=== PATIENT | male | born 1955 | race Caucasian/White ===

== ENCOUNTER 2021-02-10 09:22 | Inpatient (IN) ==
[2021-02-10] MEDS ORDERED: DEXTROSE 50% 25 GM/50 ML VIAL IV PRN ×2 (09:26)
[2021-02-10] MEDS ORDERED: GLUCAGON 1 MG VIAL IM PRN ×2 (09:26)
[2021-02-10] MEDS ORDERED: CLORAZEPATE 3.75 MG TABLET PO PRN (09:35)
[2021-02-10] MEDS ORDERED: NITROGLYCERIN SL 0.4 MG TABLET SL PRN (09:35)
[2021-02-10] MEDS ORDERED: MORPHINE 4 MG/1 ML VIAL IV PRN (09:35)
[2021-02-10 09:57] LABS: Basophils % 0.5 % (0.0-0.8); Eosinophils # 0.3 10*3/uL (0.0-0.87); Eosinophils % 4.3 % (0.00-10.9); Hematocrit 47.1 VOL% (42.0-52.0); Hemoglobin 15.2 GM/DL (14.0-18.0); Immature Granulocytes % 0.5 %; Immature Granulocytes Absolute 0.03 #; Lymphocytes # 0.8 10*3/uL (1.4-4.0); Lymphocytes % 12.6 % (21.2-54.2); Mean Corpuscular HGB Conc 32.3 GM/DL (32-36); Mean Corpuscular Volume 88.4 FL (87-102); Mean Platelet Volume 11.9 FL (9.6-12.0); Monocytes % 6.5 % (1.7-12.7); Neutrophils % 75.6 % (38.7-73.9); Platelet Count 129 T/CUMM (130-400); Red Blood Count 5.33 MC/CUMM (3.8-5.5); Red Cell Distribution Width 14.6 % (9.3-17.3)
[2021-02-10 10:20] LABS: Albumin 4.2 G/DL (3.4-5.0); Bilirubin,Total 0.6 MG/DL (0.2-1.0); Calcium 9.5 MG/DL (8.5-10.1); Osmolality,Calculated 285.2 MOS/KG (273-304); Potassium 3.5 MMOL/L (3.5-5.1); Total Protein 7.9 G/DL (6.4-8.2)
[2021-02-10 10:32] LABS: ABG Base Excess 1.4 MMOL/L (-2.5-2.5); ABG HCO3 25.6 MMOL/L (20-26); ABG Oxygen Saturation 96.8 % (95-100); ABG PH 7.419 (7.35-7.45); ABG PO2 84.6 MM HG (80-95); ABG TCO2 21.7 MMOL/L (23-27); Allen Test Positive; Pt O2 Delivery Device Room Air
[2021-02-10] MEDS ORDERED: BISACODYL 5 MG TABLET PO ONE (11:22)
[2021-02-10] MEDS: CHLORHEXIDINE 4% SOLN 118 ML BOTTLE TOP SCH ×2 (11:45→16:51)
[2021-02-10] MEDS: INSULIN REGULAR 100 UNIT/ML SUBCUT SCH ×3 (13:26→20:47)
[2021-02-10] MEDS: CHLORHEXIDINE 0.12% ORAL RINSE 60 ML BOTTLE SWISH/SPIT SCH ×2 (13:45→20:50)
[2021-02-11] MEDS: SODIUM CHLORIDE 0.9% 1,000 ML IV SCH ×2 (05:00→09:40)
[2021-02-11] MEDS: CHLORHEXIDINE 4% SOLN 118 ML BOTTLE TOP SCH (05:00)
[2021-02-11] MEDS ORDERED: VANCOMYCIN INJ 1,000 MG in SODIUM CHLORIDE 0.9% 250 ML IV ONE (05:00)
[2021-02-11] MEDS ORDERED: PAPAVERINE 60 MG/2 ML VIAL ONE (05:20)
[2021-02-11] MEDS ORDERED: VANCOMYCIN 500 MG VIAL ONE (05:21)
[2021-02-11] MEDS ORDERED: VANCOMYCIN 1,000 MG VIAL ONE (05:21)
[2021-02-11] MEDS ORDERED: PHENYLEPHRINE DRIP 20 MG/250 ML PREMIX IV ONE (05:42)
[2021-02-11] MEDS ORDERED: AMINOCAPROIC ACID 5,000 MG/20 ML VIAL ONE (05:42)
[2021-02-11] MEDS ORDERED: SODIUM CHLORIDE 0.9% 1,000 ML IV ONE (05:42)
[2021-02-11] MEDS ORDERED: LACTATED RINGERS 1,000 ML IV ONE (05:42)
[2021-02-11] MEDS ORDERED: SODIUM CHLORIDE 0.9% 250 ML IV ONE (05:42)
[2021-02-11] MEDS ORDERED: VECURONIUM 10 MG VIAL IV ONE ×2 (05:42→11:35)
[2021-02-11] MEDS ORDERED: HEPARIN/NACL 0.9% 2 UNITS/ML 1,000 UNIT/500 ML BAG IV ONE (05:42)
[2021-02-11] MEDS ORDERED: LIDOCAINE 2% 5 ML VIAL ONE ×2 (05:42→10:55)
[2021-02-11] MEDS ORDERED: ETOMIDATE 40 MG/20 ML VIAL IV ONE (05:42)
[2021-02-11] MEDS ORDERED: CALCIUM CHLORIDE 1,000 MG/10 ML VIAL IV ONE (05:42)
[2021-02-11] MEDS ORDERED: SUFentanil 250 MCG/5 ML AMP ONE ×4 (05:44→07:42)
[2021-02-11] MEDS ORDERED: MIDAZOLAM 10 MG/2 ML VIAL ONE ×4 (05:44)
[2021-02-11] MEDS ORDERED: DIAZEPAM 5 MG TABLET PO ONE (05:47)
[2021-02-11] MEDS ORDERED: FAMOTIDINE 20 MG TABLET PO ONE (05:48)
[2021-02-11] MEDS ORDERED: ONDANSETRON 4 MG/2 ML VIAL IV PRN ×2 (05:53→11:41)
[2021-02-11] MEDS ORDERED: ONDANSETRON 4 MG/2 ML VIAL ONE (05:59)
[2021-02-11 07:53] LABS: ABG Base Excess 0.5 MMOL/L (-2.5-2.5); ABG HCO3 24.9 MMOL/L (20-26); ABG Oxygen Saturation 99.9 % (95-100); ABG PCO2 35.5 MM HG (35-48); ABG PH 7.441 (7.35-7.45); ABG TCO2 20.4 MMOL/L (23-27); Glucose Heart Surgery 172 MG/DL (74-106); Hematocrit Heart Surgery 45.4 PERCENT (42-52); Hemoglobin Heart Surgery 14.8 G/DL (14.0-18.0); Ionized Calcium Arterial 1.16 MMOL/L (1.21-1.46); PCO2 Patient Temp Arterial 35.5 MMHG; PH Patient Temp Arterial 7.441; Patient Temperature 37 CELCIUS; Potassium Heart/CVR 3.3 MMOL/L (3.5-5.1); Sodium Heart/CVR 138 MMOL/L (135-145)
[2021-02-11 08:10] LABS: Bilirubin,Urine Negative (Negative); Blood, Urine Large mg/dL (Negative); Glucose,Urine (UA) >=500 mg/dL (Negative); Ketones,Urine Negative (Negative); Mucus,Urine Occasional /LPF (Occasional); Nitrite,Urine Negative (Negative); Protein,Urine Negative; RBC,Urine 4 /HPF (0-4); Squamous Epithelial Cell,Urine Occasional /HPF (0-10); Urine Appearance CLEAR (Clear); Urine Color Yellow (Yellow); Urine Specific Gravity 1.012 (1.001-1.035); Urine Urobilinogen < 2.0 EU/DL (0.2-1.0); WBC,Urine <1 /HPF (0-6)
[2021-02-11] MEDS ORDERED: NITROPRUSSIDE 50 MG/2 ML VIAL ONE (08:13)
[2021-02-11] MEDS ORDERED: SODIUM BICARBONATE 50 MEQ/50 ML VIAL IV ONE ×2 (08:13→10:56)
[2021-02-11] MEDS ORDERED: POTASSIUM CHLORIDE RIDER 100 ML IV ONE (08:14)
[2021-02-11] MEDS ORDERED: CALCIUM CHLORIDE 1,000 MG/10 ML SYRINGE IV ONE (08:14)
[2021-02-11] MEDS ORDERED: PHENYLEPHRINE DRIP 40 MG/250 ML PREMIX IV ONE (08:14)
[2021-02-11] MEDS ORDERED: ALBUMIN 5% 12.5 GM/250 ML VIAL IV ONE (08:16)
[2021-02-11] MEDS ORDERED: LIDOCAINE 100 MG/5 ML SYRINGE ONE (08:16)
[2021-02-11] MEDS ORDERED: EPINEPHrine 1 MG/10 ML SYRINGE ONE (08:16)
[2021-02-11] MEDS ORDERED: ATROPINE 1 MG/10 ML SYRINGE ONE (08:16)
[2021-02-11 09:24] LABS: Hematocrit Heart Surgery 34.1 PERCENT (42-52); Hemoglobin Heart Surgery 11.1 G/DL (14.0-18.0); PH Patient Temp Venous 7.475; PO2 Patient Temp Venous 42.2 MM HG; Potassium Heart/CVR 4.1 MMOL/L (3.5-5.1); VBG Base Excess 1.2 MEQ/L (0-4); VBG HCO3 25.2 MEQ/L (24-28); VBG Oxygen Saturation 85.5 %; VBG PCO2 36.4 MMHG (41-51); VBG PH 7.445; VBG PO2 48.4 MMHG (17-40); VBG Total CO2 22.4 MMOL/L
[2021-02-11] MEDS: INSULIN REGULAR 100 UNIT/ML SUBCUT SCH ×2 (09:39→19:01)
[2021-02-11] MEDS: CHLORHEXIDINE 0.12% ORAL RINSE 60 ML BOTTLE SWISH/SPIT SCH ×2 (09:39→20:46)
[2021-02-11] MEDS ORDERED: SEVOFLURANE 1 UNIT/15 MINUTE INH ONE ×5 (09:51→11:28)
[2021-02-11 09:54] LABS: Hematocrit Heart Surgery 38.5 PERCENT (42-52); Hemoglobin Heart Surgery 12.5 G/DL (14.0-18.0); PCO2 Patient Temp Venous 30.2 MM HG; PH Patient Temp Venous 7.5; PO2 Patient Temp Venous 44.5 MM HG; Potassium Heart/CVR 3.6 MMOL/L (3.5-5.1); VBG Base Excess 1.1 MEQ/L (0-4); VBG HCO3 25.2 MEQ/L (24-28); VBG Oxygen Saturation 87.6 %; VBG PCO2 33.2 MMHG (41-51); VBG PH 7.47; VBG PO2 51.1 MMHG (17-40); VBG Total CO2 21.2 MMOL/L
[2021-02-11 10:25] LABS: Hematocrit Heart Surgery 39.3 PERCENT (42-52); Hemoglobin Heart Surgery 12.8 G/DL (14.0-18.0); PCO2 Patient Temp Venous 26.5 MM HG; PH Patient Temp Venous 7.53; PO2 Patient Temp Venous 40.2 MM HG; Potassium Heart/CVR 3.7 MMOL/L (3.5-5.1); VBG Base Excess 0.6 MEQ/L (0-4); VBG HCO3 24.7 MEQ/L (24-28); VBG Oxygen Saturation 85.8 %; VBG PCO2 29.2 MMHG (41-51); VBG PH 7.5; VBG PO2 46.2 MMHG (17-40); VBG Total CO2 19.8 MMOL/L
[2021-02-11] MEDS ORDERED: NITROGLYCERIN DRIP 50 MG/250 ML BOTTLE IV ONE (10:39)
[2021-02-11] MEDS ORDERED: HEPARIN 10,000 UNIT/10 ML VIAL ONE (10:55)
[2021-02-11] MEDS ORDERED: PROTAMINE SULFATE 250 MG/25 ML VIAL IV ONE (10:55)
[2021-02-11] MEDS ORDERED: ALBUMIN 25% 25 GM/100 ML VIAL IV ONE (10:55)
[2021-02-11] MEDS ORDERED: methylPREDNISolone SOD SUC 1,000 MG/8 ML VIAL ONE (10:55)
[2021-02-11] MEDS ORDERED: MAGNESIUM SULFATE 5 GM/10 ML VIAL IV ONE (10:55)
[2021-02-11] MEDS ORDERED: DEXTROSE 5% KCL 20 MEQ 20 MEQ/1,000 ML BAG IV ONE (10:55)
[2021-02-11] MEDS ORDERED: MANNITOL 100 GM/500 ML BAG IV ONE (10:55)
[2021-02-11] MEDS ORDERED: FUROSEMIDE 20 MG/2 ML VIAL ONE (10:56)
[2021-02-11] MEDS ORDERED: PROTAMINE SULFATE 50 MG/5 ML VIAL IV ONE (10:56)
[2021-02-11 11:01] LABS: ABG Base Excess -1.6 MMOL/L (-2.5-2.5); ABG HCO3 23.1 MMOL/L (20-26); ABG Oxygen Saturation 98.4 % (95-100); ABG PCO2 38.1 MM HG (35-48); ABG PH 7.389 (7.35-7.45); ABG TCO2 20.2 MMOL/L (23-27); Glucose Heart Surgery 264 MG/DL (74-106); Hematocrit Heart Surgery 39.7 PERCENT (42-52); Hemoglobin Heart Surgery 12.9 G/DL (14.0-18.0); Ionized Calcium Arterial 1.26 MMOL/L (1.21-1.46); PCO2 Patient Temp Arterial 38.1 MMHG; PH Patient Temp Arterial 7.389; Patient Temperature 37 CELCIUS; Potassium Heart/CVR 4.1 MMOL/L (3.5-5.1); Sodium Heart/CVR 134 MMOL/L (135-145)
[2021-02-11] MEDS ORDERED: SUCCINYLCHOLINE 200 MG/10 ML VIAL ONE (11:29)
[2021-02-11] MEDS ORDERED: NITROPRUSSIDE 100 MG in DEXTROSE 5% 250 ML IV PRN (11:41)
[2021-02-11] MEDS ORDERED: POTASSIUM CHLORIDE RIDER 10 MEQ in PREMIX 1 EACH IV PRN (11:41)
[2021-02-11] MEDS ORDERED: MAGNESIUM SULF RIDER 2 GM in PREMIX 1 EACH IV PRN (11:41)
[2021-02-11] MEDS ORDERED: CALCIUM CHLORIDE 1,000 MG/10 ML SYRINGE IV PRN (11:41)
[2021-02-11] MEDS ORDERED: LACTATED RINGERS 250 ML IV PRN (11:41)
[2021-02-11] MEDS ORDERED: PHENYLEPHRINE DRIP 40 MG/250 ML PREMIX IV PRN (11:41)
[2021-02-11] MEDS ORDERED: MORPHINE 10 MG/1 ML VIAL IV PRN (11:41)
[2021-02-11] MEDS ORDERED: MIDAZOLAM 10 MG/2 ML VIAL IV PRN (11:41)
[2021-02-11] MEDS ORDERED: MIDAZOLAM 2 MG/2 ML VIAL IV PRN (11:41)
[2021-02-11] MEDS ORDERED: CHLORHEXIDINE 4% SOLN 118 ML BOTTLE TOP PRN (11:41)
[2021-02-11] MEDS ORDERED: ACETAMINOPHEN 650 MG SUPP RECTAL PRN (11:41)
[2021-02-11] MEDS ORDERED: DEXTROSE 50% 25 GM/50 ML VIAL IV PRN ×2 (11:41)
[2021-02-11] MEDS ORDERED: INSULIN REGULAR 100 UNIT/ML IV ONE (11:41)
[2021-02-11] MEDS ORDERED: VECURONIUM 10 MG VIAL IV PRN ×2 (11:41)
[2021-02-11] MEDS ORDERED: MAGNESIUM SULF RIDER 4 GM in PREMIX 1 EACH IV PRN (11:41)
[2021-02-11] MEDS ORDERED: INSULIN REGULAR 100 UNIT/ML IV PRN (11:41)
[2021-02-11] MEDS: SODIUM CHLORIDE 0.45% 1,000 ML IV SCH ×2 (11:50)
[2021-02-11 12:12] LABS: ABG Base Excess -1.8 MMOL/L (-2.5-2.5); ABG HCO3 22.9 MMOL/L (20-26); ABG PCO2 36.9 MM HG (35-48); ABG PH 7.396 (7.35-7.45); ABG PO2 90.6 MM HG (80-95); ABG TCO2 19.6 MMOL/L (23-27); Glucose Heart Surgery 241 MG/DL (74-106); Hematocrit Heart Surgery 41.3 PERCENT (42-52); Hemoglobin Heart Surgery 13.5 G/DL (14.0-18.0); Potassium Heart/CVR 3.1 MMOL/L (3.5-5.1)
[2021-02-11 12:16] LABS: Basophils % 0.3 % (0.0-0.8); Eosinophils # 0.2 10*3/uL (0.0-0.87); Eosinophils % 2.1 % (0.00-10.9); Hematocrit 40.3 VOL% (42.0-52.0); Hemoglobin 13.3 GM/DL (14.0-18.0); Immature Granulocytes % 1.1 %; Lymphocytes # 1.2 10*3/uL (1.4-4.0); Lymphocytes % 12.8 % (21.2-54.2); Mean Corpuscular Volume 87.6 FL (87-102); Mean Platelet Volume 12.4 FL (9.6-12.0); Monocytes % 8.3 % (1.7-12.7); Neutrophils % 75.4 % (38.7-73.9); Platelet Count 112 T/CUMM (130-400); Red Cell Distribution Width 14.5 % (9.3-17.3); White Blood Count 9.2 T/CUMM (4-12)
[2021-02-11 12:34] LABS: CKMB % 6.3 %; INR 1.3; PT Patient Result 13.8 SECS (9.8-11.9); Partial Thromboplastin Time 29.6 SECS (23.9-33.8)
[2021-02-11 12:36] LABS: Troponin I 4.89 NG/ML (0.00-0.045)
[2021-02-11 12:39] LABS: Albumin 3.5 G/DL (3.4-5.0); Bilirubin,Total 0.9 MG/DL (0.2-1.0); Potassium 3.3 MMOL/L (3.5-5.1); Total Protein 5.9 G/DL (6.4-8.2)
[2021-02-11] MEDS: POTASSIUM CHLORIDE RIDER 20 MEQ in PREMIX 1 EACH IV PRN ×5 (13:51→21:50)
[2021-02-11] MEDS ORDERED: NITROGLYCERIN DRIP 50 MG/250 ML BOTTLE IV PRN (13:52)
[2021-02-11] MEDS: INSULIN REGULAR DRIP 100 ML IV SCH (14:10)
[2021-02-11] MEDS ORDERED: LACTATED RINGERS 1,000 ML IV PRN (16:31)
[2021-02-11 17:36] LABS: ABG HCO3 23.6 MMOL/L (20-26); ABG Oxygen Saturation 98.7 % (95-100); ABG PCO2 39.3 MM HG (35-48); ABG PH 7.389 (7.35-7.45); ABG TCO2 21.1 MMOL/L (23-27); Glucose Heart Surgery 181 MG/DL (74-106); Hematocrit Heart Surgery 36.6 PERCENT (42-52); Hemoglobin Heart Surgery 11.9 G/DL (14.0-18.0); Potassium Heart/CVR 3.2 MMOL/L (3.5-5.1)
[2021-02-11] MEDS ORDERED: FUROSEMIDE 40 MG/4 ML VIAL ONE (18:31)
[2021-02-11] MEDS ORDERED: FUROSEMIDE 40 MG/4 ML VIAL IV ONE (19:00)
[2021-02-11 19:18] LABS: ABG Base Excess -0.8 MMOL/L (-2.5-2.5); ABG HCO3 23.8 MMOL/L (20-26); ABG Oxygen Saturation 97.4 % (95-100); ABG PCO2 41.3 MM HG (35-48); ABG PH 7.378 (7.35-7.45); ABG PO2 92.5 MM HG (80-95); ABG TCO2 21.7 MMOL/L (23-27); Glucose Heart Surgery 133 MG/DL (74-106); Hematocrit Heart Surgery 36.2 PERCENT (42-52); Hemoglobin Heart Surgery 11.7 G/DL (14.0-18.0); Potassium Heart/CVR 3.6 MMOL/L (3.5-5.1)
[2021-02-11 19:38] LABS: CKMB % 4.9 %
[2021-02-11] MEDS: ALBUMIN 5% 12.5 GM/250 ML VIAL IV PRN ×2 (19:40→20:46)
[2021-02-11] MEDS: MORPHINE 4 MG/1 ML VIAL IV PRN (19:42)
[2021-02-11 19:44] LABS: Troponin I 5.78 NG/ML (0.00-0.045)
[2021-02-11 21:06] LABS: ABG Base Excess -1.1 MMOL/L (-2.5-2.5); ABG HCO3 23.5 MMOL/L (20-26); ABG Oxygen Saturation 96.4 % (95-100); ABG PH 7.376 (7.35-7.45); ABG PO2 84.9 MM HG (80-95); ABG TCO2 21.5 MMOL/L (23-27); Glucose Heart Surgery 110 MG/DL (74-106); Hematocrit Heart Surgery 35.1 PERCENT (42-52); Hemoglobin Heart Surgery 11.4 G/DL (14.0-18.0); Potassium Heart/CVR 3.3 MMOL/L (3.5-5.1)
[2021-02-11] MEDS: VANCOMYCIN INJ 1,000 MG in SODIUM CHLORIDE 0.9% 250 ML IV SCH (21:15)
[2021-02-11 22:00] LABS: ABG Base Excess -1.5 MMOL/L (-2.5-2.5); ABG HCO3 23.1 MMOL/L (20-26); ABG Oxygen Saturation 96.8 % (95-100); ABG PCO2 44.5 MM HG (35-48); ABG PH 7.346 (7.35-7.45); ABG PO2 91.4 MM HG (80-95); ABG TCO2 21.9 MMOL/L (23-27); Glucose Heart Surgery 153 MG/DL (74-106); Hematocrit Heart Surgery 34.6 PERCENT (42-52); Hemoglobin Heart Surgery 11.2 G/DL (14.0-18.0)
[2021-02-12 00:07] LABS: ABG HCO3 23.5 MMOL/L (20-26); ABG Oxygen Saturation 95.5 % (95-100); ABG PCO2 43.1 MM HG (35-48); ABG PH 7.354 (7.35-7.45); ABG PO2 85.9 MM HG (80-95); ABG TCO2 24.8 MMOL/L (23-27); Glucose Heart Surgery 136 MG/DL (74-106); Hemoglobin Heart Surgery 11.5 G/DL (14.0-18.0); Potassium Heart/CVR 3.3 MMOL/L (3.5-5.1)
[2021-02-12] MEDS: INSULIN REGULAR DRIP 100 ML IV SCH ×2 (00:11→12:11)
[2021-02-12] MEDS: POTASSIUM CHLORIDE RIDER 20 MEQ in PREMIX 1 EACH IV PRN ×5 (00:15→12:59)
[2021-02-12 01:36] LABS: ABG Base Excess -1.4 MMOL/L (-2.5-2.5); ABG HCO3 23.2 MMOL/L (20-26); ABG PCO2 45.1 MM HG (35-48); ABG PH 7.343 (7.35-7.45); ABG PO2 77.6 MM HG (80-95); ABG TCO2 22.2 MMOL/L (23-27); Glucose Heart Surgery 126 MG/DL (74-106); Hematocrit Heart Surgery 34.1 PERCENT (42-52); Potassium Heart/CVR 4.1 MMOL/L (3.5-5.1)
[2021-02-12] MEDS: MORPHINE 4 MG/1 ML VIAL IV PRN (02:20)
[2021-02-12 03:38] LABS: ABG Base Excess -0.2 MMOL/L (-2.5-2.5); ABG HCO3 24.2 MMOL/L (20-26); ABG Oxygen Saturation 95.3 % (95-100); ABG PCO2 41.9 MM HG (35-48); ABG PH 7.383 (7.35-7.45); ABG PO2 76.1 MM HG (80-95); ABG TCO2 22.4 MMOL/L (23-27); Glucose Heart Surgery 106 MG/DL (74-106); Hematocrit Heart Surgery 34.6 PERCENT (42-52); Hemoglobin Heart Surgery 11.2 G/DL (14.0-18.0); Potassium Heart/CVR 3.9 MMOL/L (3.5-5.1)
[2021-02-12 03:43] LABS: Basophils % 0.1 % (0.0-0.8); Hematocrit 34.1 VOL% (42.0-52.0); Immature Granulocytes % 0.7 %; Immature Granulocytes Absolute 0.11 #; Lymphocytes # 1.2 10*3/uL (1.4-4.0); Lymphocytes % 7.8 % (21.2-54.2); Mean Corpuscular HGB Conc 32.3 GM/DL (32-36); Mean Corpuscular Volume 89.3 FL (87-102); Mean Platelet Volume 11.9 FL (9.6-12.0); Neutrophils % 80.4 % (38.7-73.9); Platelet Count 202 T/CUMM (130-400); Red Blood Count 3.82 MC/CUMM (3.8-5.5); Red Cell Distribution Width 14.9 % (9.3-17.3); White Blood Count 15.1 T/CUMM (4-12)
[2021-02-12 04:01] LABS: Albumin 3.7 G/DL (3.4-5.0); Bilirubin,Direct 0.24 MG/DL (0.0-0.20); Bilirubin,Total 0.6 MG/DL (0.2-1.0); Calcium 8.6 MG/DL (8.5-10.1); Osmolality,Calculated 290.3 MOS/KG (273-304); Potassium 3.9 MMOL/L (3.5-5.1); Total Protein 6.5 G/DL (6.4-8.2)
[2021-02-12 04:05] LABS: CKMB % 7.2 %
[2021-02-12 04:17] LABS: Troponin I 8.78 NG/ML (0.00-0.045)
[2021-02-12 05:17] LABS: ABG Base Excess -2.2 MMOL/L (-2.5-2.5); ABG HCO3 22.5 MMOL/L (20-26); ABG Oxygen Saturation 94.5 % (95-100); ABG PCO2 42.7 MM HG (35-48); ABG PH 7.347 (7.35-7.45); ABG PO2 75.9 MM HG (80-95); ABG TCO2 21.2 MMOL/L (23-27); Glucose Heart Surgery 164 MG/DL (74-106); Hematocrit Heart Surgery 33.3 PERCENT (42-52); Hemoglobin Heart Surgery 10.8 G/DL (14.0-18.0); Potassium Heart/CVR 3.4 MMOL/L (3.5-5.1)
[2021-02-12] MEDS ORDERED: FUROSEMIDE 40 MG/4 ML VIAL IV ONE ×2 (06:17→13:00)
[2021-02-12 06:19] LABS: ABG Base Excess -1.2 MMOL/L (-2.5-2.5); ABG HCO3 23.3 MMOL/L (20-26); ABG Oxygen Saturation 94.2 % (95-100); ABG PCO2 42.5 MM HG (35-48); ABG PH 7.363 (7.35-7.45); ABG PO2 73.7 MM HG (80-95); ABG TCO2 21.8 MMOL/L (23-27); Glucose Heart Surgery 153 MG/DL (74-106); Potassium Heart/CVR 4.3 MMOL/L (3.5-5.1)
[2021-02-12 08:57] LABS: ABG Base Excess 0.3 MMOL/L (-2.5-2.5); ABG HCO3 24.7 MMOL/L (20-26); ABG Oxygen Saturation 95.8 % (95-100); ABG PCO2 43.8 MM HG (35-48); ABG PH 7.376 (7.35-7.45); ABG PO2 79.3 MM HG (80-95); ABG TCO2 23.1 MMOL/L (23-27); Glucose Heart Surgery 134 MG/DL (74-106); Hematocrit Heart Surgery 34.5 PERCENT (42-52); Hemoglobin Heart Surgery 11.2 G/DL (14.0-18.0); Potassium Heart/CVR 4.1 MMOL/L (3.5-5.1)
[2021-02-12] MEDS: ASCORBIC ACID 500 MG TABLET PO SCH ×2 (09:07→20:48)
[2021-02-12] MEDS: ASPIRIN EC 325 MG TABLET PO SCH (09:07)
[2021-02-12] MEDS: cloNIDine 0.1 MG TABLET PO SCH ×2 (09:08→19:05)
[2021-02-12] MEDS: amLODIPine 5 MG TABLET PO SCH (09:08)
[2021-02-12] MEDS: carvediloL 25 MG TABLET PO SCH ×2 (09:08→20:48)
[2021-02-12] MEDS: ROSUVASTATIN 20 MG TABLET PO SCH (09:08)
[2021-02-12] MEDS: CHLORHEXIDINE 0.12% ORAL RINSE 60 ML BOTTLE SWISH/SPIT SCH ×2 (09:09→20:48)
[2021-02-12] MEDS: VANCOMYCIN INJ 1,000 MG in SODIUM CHLORIDE 0.9% 250 ML IV SCH ×2 (09:28→20:48)
[2021-02-12 10:18] LABS: ABG Base Excess -1.8 MMOL/L (-2.5-2.5); ABG HCO3 22.8 MMOL/L (20-26); ABG Oxygen Saturation 93.1 % (95-100); ABG PCO2 39.1 MM HG (35-48); ABG PH 7.379 (7.35-7.45); ABG PO2 67.2 MM HG (80-95); ABG TCO2 20.8 MMOL/L (23-27); Glucose Heart Surgery 132 MG/DL (74-106); Hematocrit Heart Surgery 33.5 PERCENT (42-52); Hemoglobin Heart Surgery 10.9 G/DL (14.0-18.0); Potassium Heart/CVR 3.4 MMOL/L (3.5-5.1)
[2021-02-12] MEDS: SODIUM CHLORIDE 0.45% 1,000 ML IV SCH ×2 (12:12)
[2021-02-12 13:00] LABS: CKMB % 6.5 %
[2021-02-12 13:03] LABS: Troponin I 10.9 NG/ML (0.00-0.045)
[2021-02-12] MEDS: oxyCODONE/ACETAMINOPHEN 5-325 MG TABLET PO PRN (15:30)
[2021-02-12] MEDS: INSULIN LISPRO 100 UNIT/ML SUBCUT SCH ×2 (18:24→20:48)
[2021-02-13] MEDS ORDERED: FUROSEMIDE 40 MG/4 ML VIAL IV ONE
[2021-02-13] MEDS: INSULIN LISPRO 100 UNIT/ML SUBCUT SCH ×6 (00:05→20:59)
[2021-02-13 04:20] LABS: Hematocrit 33.4 VOL% (42.0-52.0); Hemoglobin 10.5 GM/DL (14.0-18.0); Immature Granulocytes % 0.7 %; Immature Granulocytes Absolute 0.09 #; Lymphocytes # 0.7 10*3/uL (1.4-4.0); Lymphocytes % 5.3 % (21.2-54.2); Mean Corpuscular HGB Conc 31.4 GM/DL (32-36); Mean Corpuscular Volume 91.3 FL (87-102); Mean Platelet Volume 11.8 FL (9.6-12.0); Monocytes % 11.6 % (1.7-12.7); Neutrophils % 82.4 % (38.7-73.9); Platelet Count 124 T/CUMM (130-400); Red Blood Count 3.66 MC/CUMM (3.8-5.5); Red Cell Distribution Width 15.3 % (9.3-17.3)
[2021-02-13 04:38] LABS: Albumin 3.5 G/DL (3.4-5.0); Bilirubin,Direct 0.23 MG/DL (0.0-0.20); Bilirubin,Total 0.6 MG/DL (0.2-1.0); Osmolality,Calculated 300.1 MOS/KG (273-304); Potassium 3.7 MMOL/L (3.5-5.1); Total Protein 6.5 G/DL (6.4-8.2)
[2021-02-13] MEDS: POTASSIUM CHLORIDE RIDER 20 MEQ in PREMIX 1 EACH IV PRN (06:05)
[2021-02-13] MEDS ORDERED: ALBUTEROL/IPRATROPIUM 3 ML NEB RESP TX ONE (08:10)
[2021-02-13] MEDS: cloNIDine 0.1 MG TABLET PO SCH ×2 (08:37→19:15)
[2021-02-13] MEDS: ASPIRIN EC 325 MG TABLET PO SCH (08:38)
[2021-02-13] MEDS: amLODIPine 5 MG TABLET PO SCH (08:38)
[2021-02-13] MEDS: ROSUVASTATIN 20 MG TABLET PO SCH (08:38)
[2021-02-13] MEDS: ASCORBIC ACID 500 MG TABLET PO SCH ×2 (08:39→21:01)
[2021-02-13] MEDS: carvediloL 25 MG TABLET PO SCH ×2 (08:39→21:01)
[2021-02-13] MEDS: VANCOMYCIN INJ 1,000 MG in SODIUM CHLORIDE 0.9% 250 ML IV SCH (09:00)
[2021-02-13] MEDS: CHLORHEXIDINE 0.12% ORAL RINSE 60 ML BOTTLE SWISH/SPIT SCH ×2 (09:00→21:01)
[2021-02-13 09:03] LABS: CKMB % 2.4 %
[2021-02-13 09:08] LABS: Troponin I 8.86 NG/ML (0.00-0.045)
[2021-02-13] MEDS: SODIUM CHLORIDE 0.45% 1,000 ML IV SCH ×2 (12:12)
[2021-02-13] MEDS: INSULIN REGULAR DRIP 100 ML IV SCH (12:15)
[2021-02-13] MEDS: ALBUTEROL/IPRATROPIUM 3 ML NEB RESP TX SCH ×2 (13:30→18:33)
[2021-02-13] MEDS: FUROSEMIDE 40 MG/4 ML VIAL IV SCH (17:35)
[2021-02-13] MEDS: oxyCODONE/ACETAMINOPHEN 5-325 MG TABLET PO PRN (21:03)
[2021-02-14] MEDS: INSULIN LISPRO 100 UNIT/ML SUBCUT SCH ×3 (00:17→08:21)
[2021-02-14] MEDS: ALBUTEROL/IPRATROPIUM 3 ML NEB RESP TX SCH ×4 (01:55→20:47)
[2021-02-14 04:58] LABS: Basophils % 0.1 % (0.0-0.8); Hematocrit 33.3 VOL% (42.0-52.0); Hemoglobin 10.4 GM/DL (14.0-18.0); Immature Granulocytes Absolute 0.11 #; Lymphocytes # 1.5 10*3/uL (1.4-4.0); Lymphocytes % 13.7 % (21.2-54.2); Mean Corpuscular HGB Conc 31.2 GM/DL (32-36); Mean Platelet Volume 12.6 FL (9.6-12.0); Monocytes % 12.3 % (1.7-12.7); Neutrophils % 72.9 % (38.7-73.9); Platelet Count 113 T/CUMM (130-400); Red Blood Count 3.66 MC/CUMM (3.8-5.5); Red Cell Distribution Width 15.2 % (9.3-17.3)
[2021-02-14 05:30] LABS: Albumin 3.3 G/DL (3.4-5.0); Bilirubin,Direct 0.16 MG/DL (0.0-0.20); Bilirubin,Total 0.8 MG/DL (0.2-1.0); Calcium 7.9 MG/DL (8.5-10.1); Potassium 3.7 MMOL/L (3.5-5.1); Total Protein 6.4 G/DL (6.4-8.2)
[2021-02-14] MEDS: oxyCODONE/ACETAMINOPHEN 5-325 MG TABLET PO PRN (06:40)
[2021-02-14] MEDS: POTASSIUM CHLORIDE RIDER 20 MEQ in PREMIX 1 EACH IV PRN (06:40)
[2021-02-14] MEDS: carvediloL 25 MG TABLET PO SCH ×2 (08:20→21:21)
[2021-02-14] MEDS: amLODIPine 5 MG TABLET PO SCH (08:20)
[2021-02-14] MEDS: ASCORBIC ACID 500 MG TABLET PO SCH ×2 (08:20→21:22)
[2021-02-14] MEDS: cloNIDine 0.1 MG TABLET PO SCH ×2 (08:20→18:13)
[2021-02-14] MEDS: ROSUVASTATIN 20 MG TABLET PO SCH (08:20)
[2021-02-14] MEDS: FUROSEMIDE 40 MG/4 ML VIAL IV SCH (08:21)
[2021-02-14] MEDS: hydroCHLOROthiazide 12.5 MG CAPSULE PO SCH (08:21)
[2021-02-14] MEDS: ASPIRIN EC 81 MG TABLET PO SCH (08:22)
[2021-02-14] MEDS: CHLORHEXIDINE 0.12% ORAL RINSE 60 ML BOTTLE SWISH/SPIT SCH ×2 (08:22→21:22)
[2021-02-14] MEDS ORDERED: DEXTROSE 50% 25 GM/50 ML VIAL IV PRN (09:29)
[2021-02-14] MEDS ORDERED: MAGNESIUM SULF RIDER 4 GM in PREMIX 1 EACH IV PRN (09:29)
[2021-02-14] MEDS ORDERED: ALUMINUM/MAGNES/SIMETH MAX STR 30 ML UDCUP PO PRN (09:29)
[2021-02-14] MEDS ORDERED: MAGNESIUM SULF RIDER 2 GM in PREMIX 1 EACH IV PRN (09:29)
[2021-02-14] MEDS ORDERED: GLUCAGON 1 MG VIAL IM PRN (09:29)
[2021-02-14] MEDS ORDERED: ONDANSETRON 4 MG/2 ML VIAL IV PRN (09:29)
[2021-02-14] MEDS ORDERED: SODIUM CHLOR 0.45% KCL 20 MEQ 20 MEQ/1,000 ML BAG IV SCH (09:30)
[2021-02-15] MEDS: ALBUTEROL/IPRATROPIUM 3 ML NEB RESP TX SCH ×4 (00:44→19:42)
[2021-02-15 05:18] LABS: Basophils % 0.1 % (0.0-0.8); Eosinophils # 0.3 10*3/uL (0.0-0.87); Eosinophils % 3.7 % (0.00-10.9); Hematocrit 34.2 VOL% (42.0-52.0); Hemoglobin 10.8 GM/DL (14.0-18.0); Immature Granulocytes Absolute 0.08 #; Lymphocytes # 1.8 10*3/uL (1.4-4.0); Lymphocytes % 22.8 % (21.2-54.2); Mean Corpuscular HGB Conc 31.6 GM/DL (32-36); Mean Corpuscular Volume 89.3 FL (87-102); Mean Platelet Volume 12.5 FL (9.6-12.0); Monocytes % 9.9 % (1.7-12.7); Neutrophils % 62.5 % (38.7-73.9); Platelet Count 105 T/CUMM (130-400); Red Blood Count 3.83 MC/CUMM (3.8-5.5); Red Cell Distribution Width 14.8 % (9.3-17.3); White Blood Count 7.9 T/CUMM (4-12)
[2021-02-15 05:38] LABS: Albumin 3.4 G/DL (3.4-5.0); Bilirubin,Direct 0.22 MG/DL (0.0-0.20); Bilirubin,Indirect 0.7 MG/DL (0.0-1.0); Bilirubin,Total 0.9 MG/DL (0.2-1.0); Calcium 8.3 MG/DL (8.5-10.1); Osmolality,Calculated 293.5 MOS/KG (273-304); Potassium 3.6 MMOL/L (3.5-5.1)
[2021-02-15 05:40] LABS: Blood Urea Nitrogen 46 MG/DL (7-18); Calcium 8.4 MG/DL (8.5-10.1); Carbon Dioxide 28 MMOL/L (21-32); Estimated Glom Filtration Rate 58 ML/MIN; Glucose 199 MG/DL (74-106); Osmolality,Calculated 294.5 MOS/KG (273-304); Potassium 3.5 MMOL/L (3.5-5.1); Sodium 139 MMOL/L (136-145)
[2021-02-15] MEDS: ASCORBIC ACID 500 MG TABLET PO SCH ×2 (08:36→20:53)
[2021-02-15] MEDS: ROSUVASTATIN 20 MG TABLET PO SCH (08:36)
[2021-02-15] MEDS: DOCUSATE SODIUM 100 MG CAPSULE PO SCH (08:36)
[2021-02-15] MEDS: amLODIPine 5 MG TABLET PO SCH (08:36)
[2021-02-15] MEDS: hydroCHLOROthiazide 12.5 MG CAPSULE PO SCH (08:37)
[2021-02-15] MEDS: cloNIDine 0.1 MG TABLET PO SCH ×2 (08:37→18:11)
[2021-02-15] MEDS: ASPIRIN EC 81 MG TABLET PO SCH (08:37)
[2021-02-15] MEDS: FUROSEMIDE 40 MG TABLET PO SCH (08:37)
[2021-02-15] MEDS: carvediloL 25 MG TABLET PO SCH ×2 (08:37→20:53)
[2021-02-15] MEDS: FARXIGA 5MG TABLETS PO SCH (08:38)
[2021-02-15] MEDS: oxyCODONE/ACETAMINOPHEN 5-325 MG TABLET PO PRN ×2 (08:41→20:54)
[2021-02-15] MEDS: FERROUS SULFATE 325 MG TABLET PO SCH (08:42)
[2021-02-15] MEDS: PANTOPRAZOLE 40 MG TABLET PO SCH (08:42)
[2021-02-15] MEDS: CHLORHEXIDINE 0.12% ORAL RINSE 60 ML BOTTLE SWISH/SPIT SCH ×2 (08:42→20:55)
[2021-02-16] MEDS: ALBUTEROL/IPRATROPIUM 3 ML NEB RESP TX SCH ×4 (00:41→19:18)
[2021-02-16 05:58] LABS: Basophils % 0.3 % (0.0-0.8); Eosinophils # 0.4 10*3/uL (0.0-0.87); Eosinophils % 5.2 % (0.00-10.9); Hematocrit 35.5 VOL% (42.0-52.0); Hemoglobin 11.3 GM/DL (14.0-18.0); Immature Granulocytes % 1.1 %; Immature Granulocytes Absolute 0.08 #; Lymphocytes # 1.9 10*3/uL (1.4-4.0); Lymphocytes % 25.5 % (21.2-54.2); Mean Corpuscular HGB Conc 31.8 GM/DL (32-36); Mean Corpuscular Volume 89.6 FL (87-102); Mean Platelet Volume 12.5 FL (9.6-12.0); Monocytes % 11.2 % (1.7-12.7); NRBC # 0.02 10*3/uL; Neutrophils % 56.7 % (38.7-73.9); Platelet Count 119 T/CUMM (130-400); Red Blood Count 3.96 MC/CUMM (3.8-5.5); Red Cell Distribution Width 14.6 % (9.3-17.3); White Blood Count 7.3 T/CUMM (4-12)
[2021-02-16 06:05] LABS: Calcium 8.6 MG/DL (8.5-10.1); Osmolality,Calculated 289.7 MOS/KG (273-304); Potassium 3.1 MMOL/L (3.5-5.1)
[2021-02-16 06:11] LABS: Albumin 3.1 G/DL (3.4-5.0); Bilirubin,Direct 0.22 MG/DL (0.0-0.20); Bilirubin,Indirect 0.6 MG/DL (0.0-1.0); Bilirubin,Total 0.8 MG/DL (0.2-1.0); Calcium 8.7 MG/DL (8.5-10.1); Potassium 3.1 MMOL/L (3.5-5.1); Total Protein 6.5 G/DL (6.4-8.2)
[2021-02-16] MEDS: oxyCODONE/ACETAMINOPHEN 5-325 MG TABLET PO PRN ×3 (06:35→21:54)
[2021-02-16] MEDS: POTASSIUM CHLORIDE 20 MEQ TABLET PO PRN ×2 (06:35→10:25)
[2021-02-16] MEDS: POLYETHYLENE GLYCOL POWDER 17 GM PACK PO SCH (10:23)
[2021-02-16] MEDS: OLMESARTAN 20 MG TABLET PO SCH (10:23)
[2021-02-16] MEDS: cloNIDine 0.1 MG TABLET PO SCH ×2 (10:24→20:41)
[2021-02-16] MEDS: ROSUVASTATIN 20 MG TABLET PO SCH (10:24)
[2021-02-16] MEDS: MAGNESIUM HYDROXIDE SUSP 30 ML UDCUP PO PRN (10:24)
[2021-02-16] MEDS: ASPIRIN EC 81 MG TABLET PO SCH (10:24)
[2021-02-16] MEDS: amLODIPine 5 MG TABLET PO SCH (10:25)
[2021-02-16] MEDS: FERROUS SULFATE 325 MG TABLET PO SCH (10:25)
[2021-02-16] MEDS: ASCORBIC ACID 500 MG TABLET PO SCH ×2 (10:25→20:40)
[2021-02-16] MEDS: FUROSEMIDE 40 MG TABLET PO SCH (10:26)
[2021-02-16] MEDS: hydroCHLOROthiazide 12.5 MG CAPSULE PO SCH (10:26)
[2021-02-16] MEDS: carvediloL 25 MG TABLET PO SCH ×2 (10:26→20:40)
[2021-02-16] MEDS: DOCUSATE SODIUM 100 MG CAPSULE PO SCH (10:26)
[2021-02-16] MEDS: CHLORHEXIDINE 0.12% ORAL RINSE 60 ML BOTTLE SWISH/SPIT SCH ×2 (10:27→20:50)
[2021-02-16] MEDS: FARXIGA 5MG TABLETS PO SCH (10:28)
[2021-02-16] MEDS: PANTOPRAZOLE 40 MG TABLET PO SCH (10:29)
[2021-02-16] MEDS: INSULIN REGULAR 100 UNIT/ML SUBCUT SCH ×2 (18:26→22:00)
[2021-02-16] MEDS ORDERED: INSULIN REGULAR 100 UNIT/ML SUBCUT SCH (21:00)
[2021-02-17] MEDS: ALBUTEROL/IPRATROPIUM 3 ML NEB RESP TX SCH ×4 (00:10→19:20)
[2021-02-17 05:15] LABS: Basophils % 0.1 % (0.0-0.8); Eosinophils # 0.4 10*3/uL (0.0-0.87); Hematocrit 35.1 VOL% (42.0-52.0); Immature Granulocytes % 1.1 %; Lymphocytes # 1.9 10*3/uL (1.4-4.0); Lymphocytes % 21.6 % (21.2-54.2); Mean Corpuscular HGB Conc 31.3 GM/DL (32-36); Mean Corpuscular Volume 90.7 FL (87-102); Mean Platelet Volume 12.6 FL (9.6-12.0); Monocytes % 12.6 % (1.7-12.7); Neutrophils % 59.6 % (38.7-73.9); Platelet Count 123 T/CUMM (130-400); Red Blood Count 3.87 MC/CUMM (3.8-5.5); Red Cell Distribution Width 14.8 % (9.3-17.3); White Blood Count 8.9 T/CUMM (4-12)
[2021-02-17] MEDS: POTASSIUM CHLORIDE 20 MEQ TABLET PO PRN ×3 (05:50→08:23)
[2021-02-17 05:54] LABS: Calcium 8.6 MG/DL (8.5-10.1); Potassium 3.4 MMOL/L (3.5-5.1)
[2021-02-17] MEDS ORDERED: LACTULOSE 20 GM/30 ML UDCUP PO ONE (08:13)
[2021-02-17] MEDS: MAGNESIUM HYDROXIDE SUSP 30 ML UDCUP PO PRN (08:22)
[2021-02-17] MEDS: CHLORHEXIDINE 0.12% ORAL RINSE 60 ML BOTTLE SWISH/SPIT SCH ×2 (08:22→20:46)
[2021-02-17] MEDS: POLYETHYLENE GLYCOL POWDER 17 GM PACK PO SCH (08:22)
[2021-02-17] MEDS: cloNIDine 0.1 MG TABLET PO SCH (08:23)
[2021-02-17] MEDS: ROSUVASTATIN 20 MG TABLET PO SCH (08:23)
[2021-02-17] MEDS: DOCUSATE SODIUM 100 MG CAPSULE PO SCH (08:23)
[2021-02-17] MEDS: hydroCHLOROthiazide 12.5 MG CAPSULE PO SCH (08:23)
[2021-02-17] MEDS: ASPIRIN EC 81 MG TABLET PO SCH (08:24)
[2021-02-17] MEDS: amLODIPine 5 MG TABLET PO SCH (08:24)
[2021-02-17] MEDS: OLMESARTAN 20 MG TABLET PO SCH (08:24)
[2021-02-17] MEDS: ASCORBIC ACID 500 MG TABLET PO SCH ×2 (08:25→20:46)
[2021-02-17] MEDS: PANTOPRAZOLE 40 MG TABLET PO SCH (08:25)
[2021-02-17] MEDS: FERROUS SULFATE 325 MG TABLET PO SCH (08:25)
[2021-02-17] MEDS: INSULIN REGULAR 100 UNIT/ML SUBCUT SCH ×4 (10:08→20:46)
[2021-02-17] MEDS: FARXIGA 5MG TABLETS PO SCH (10:53)
[2021-02-17] MEDS: carvediloL 25 MG TABLET PO SCH (10:53)
[2021-02-17] MEDS: carvediloL 12.5 MG TABLET PO SCH (20:45)
[2021-02-17] MEDS: INSULIN GLARGINE 100 UNIT/ML SUBCUT SCH (20:46)
[2021-02-17] MEDS: oxyCODONE/ACETAMINOPHEN 5-325 MG TABLET PO PRN (23:17)
[2021-02-18] MEDS: ALBUTEROL/IPRATROPIUM 3 ML NEB RESP TX SCH ×4 (00:41→19:38)
[2021-02-18 04:59] LABS: Basophils % 0.4 % (0.0-0.8); Eosinophils # 0.6 10*3/uL (0.0-0.87); Eosinophils % 6.1 % (0.00-10.9); Hematocrit 33.6 VOL% (42.0-52.0); Hemoglobin 10.8 GM/DL (14.0-18.0); Immature Granulocytes % 1.2 %; Immature Granulocytes Absolute 0.12 #; Lymphocytes # 2.1 10*3/uL (1.4-4.0); Mean Corpuscular HGB Conc 32.1 GM/DL (32-36); Mean Corpuscular Volume 90.1 FL (87-102); Mean Platelet Volume 12.1 FL (9.6-12.0); Monocytes % 9.9 % (1.7-12.7); Neutrophils % 61.4 % (38.7-73.9); Platelet Count 134 T/CUMM (130-400); Red Blood Count 3.73 MC/CUMM (3.8-5.5); White Blood Count 10.2 T/CUMM (4-12)
[2021-02-18 05:25] LABS: Calcium 8.6 MG/DL (8.5-10.1); Osmolality,Calculated 285.1 MOS/KG (273-304); Potassium 3.9 MMOL/L (3.5-5.1)
[2021-02-18 05:32] LABS: Alanine Aminotransferase 40 U/L (16-61); Albumin 2.8 G/DL (3.4-5.0); Alkaline Phosphatase 52 U/L (45-117); Aspartate Amino Transferase 21 U/L (0-37); Bilirubin,Indirect 0.6 MG/DL (0.0-1.0); Blood Urea Nitrogen 43 MG/DL (7-18); Calcium 8.5 MG/DL (8.5-10.1); Carbon Dioxide 26 MMOL/L (21-32); Estimated Glom Filtration Rate 53 ML/MIN; Glucose 168 MG/DL (74-106); Osmolality,Calculated 287.8 MOS/KG (273-304); Potassium 3.9 MMOL/L (3.5-5.1); Sodium 137 MMOL/L (136-145)
[2021-02-18 05:34] LABS: Troponin I 0.766 NG/ML (0.00-0.045)
[2021-02-18] MEDS: ASPIRIN EC 81 MG TABLET PO SCH (08:22)
[2021-02-18] MEDS: hydroCHLOROthiazide 12.5 MG CAPSULE PO SCH (08:22)
[2021-02-18] MEDS: POTASSIUM CHLORIDE 20 MEQ TABLET PO PRN ×2 (08:23→10:11)
[2021-02-18] MEDS: OLMESARTAN 20 MG TABLET PO SCH (08:23)
[2021-02-18] MEDS: ROSUVASTATIN 20 MG TABLET PO SCH (08:23)
[2021-02-18] MEDS: FERROUS SULFATE 325 MG TABLET PO SCH (08:23)
[2021-02-18] MEDS: ASCORBIC ACID 500 MG TABLET PO SCH ×2 (08:24→20:54)
[2021-02-18] MEDS: PANTOPRAZOLE 40 MG TABLET PO SCH (08:24)
[2021-02-18] MEDS: DOCUSATE SODIUM 100 MG CAPSULE PO SCH (08:24)
[2021-02-18] MEDS: carvediloL 12.5 MG TABLET PO SCH ×2 (08:24→20:54)
[2021-02-18] MEDS: INSULIN REGULAR 100 UNIT/ML SUBCUT SCH ×4 (08:25→21:01)
[2021-02-18] MEDS: POLYETHYLENE GLYCOL POWDER 17 GM PACK PO SCH (08:25)
[2021-02-18] MEDS: INSULIN GLARGINE 100 UNIT/ML SUBCUT SCH ×2 (08:27→21:02)
[2021-02-18] MEDS: FARXIGA 5MG TABLETS PO SCH (08:28)
[2021-02-18] MEDS: CHLORHEXIDINE 0.12% ORAL RINSE 60 ML BOTTLE SWISH/SPIT SCH ×2 (08:28→21:01)
[2021-02-18] MEDS ORDERED: amLODIPine 5 MG TABLET PO SCH (09:00)
[2021-02-18] MEDS ORDERED: LACTULOSE 20 GM/30 ML UDCUP PO ONE (09:52)
[2021-02-18] MEDS: LACTULOSE 20 GM/30 ML UDCUP PO SCH ×4 (10:53→21:01)
[2021-02-18] MEDS: oxyCODONE/ACETAMINOPHEN 5-325 MG TABLET PO PRN ×2 (15:31→22:11)
[2021-02-19] MEDS: ALBUTEROL/IPRATROPIUM 3 ML NEB RESP TX SCH ×4 (00:05→19:22)
[2021-02-19] MEDS: LACTULOSE 20 GM/30 ML UDCUP PO SCH ×6 (02:00→21:10)
[2021-02-19 05:33] LABS: Basophils % 0.3 % (0.0-0.8); Eosinophils # 0.5 10*3/uL (0.0-0.87); Eosinophils % 5.7 % (0.00-10.9); Hematocrit 33.5 VOL% (42.0-52.0); Hemoglobin 10.9 GM/DL (14.0-18.0); Immature Granulocytes % 1.7 %; Immature Granulocytes Absolute 0.15 #; Lymphocytes # 1.8 10*3/uL (1.4-4.0); Lymphocytes % 19.6 % (21.2-54.2); Mean Corpuscular HGB Conc 32.5 GM/DL (32-36); Mean Corpuscular Volume 88.4 FL (87-102); Mean Platelet Volume 12.2 FL (9.6-12.0); Monocytes % 11.5 % (1.7-12.7); Neutrophils % 61.2 % (38.7-73.9); Platelet Count 140 T/CUMM (130-400); Red Blood Count 3.79 MC/CUMM (3.8-5.5)
[2021-02-19 06:04] LABS: Alanine Aminotransferase 41 U/L (16-61); Alkaline Phosphatase 56 U/L (45-117); Aspartate Amino Transferase 22 U/L (0-37); Bilirubin,Indirect 0.6 MG/DL (0.0-1.0); Blood Urea Nitrogen 41 MG/DL (7-18); Calcium 8.9 MG/DL (8.5-10.1); Carbon Dioxide 24 MMOL/L (21-32); Estimated Glom Filtration Rate 58 ML/MIN; Glucose 173 MG/DL (74-106); Potassium 3.7 MMOL/L (3.5-5.1); Sodium 136 MMOL/L (136-145); Total Protein 6.3 G/DL (6.4-8.2)
[2021-02-19 06:05] LABS: Troponin I 0.364 NG/ML (0.00-0.045)
[2021-02-19] MEDS: hydroCHLOROthiazide 12.5 MG CAPSULE PO SCH (08:56)
[2021-02-19] MEDS: ASCORBIC ACID 500 MG TABLET PO SCH ×2 (08:57→20:49)
[2021-02-19] MEDS: carvediloL 12.5 MG TABLET PO SCH ×2 (08:57→20:49)
[2021-02-19] MEDS: OLMESARTAN 20 MG TABLET PO SCH (08:57)
[2021-02-19] MEDS: FERROUS SULFATE 325 MG TABLET PO SCH (08:57)
[2021-02-19] MEDS: oxyCODONE/ACETAMINOPHEN 5-325 MG TABLET PO PRN ×3 (08:57→21:32)
[2021-02-19] MEDS: DOCUSATE SODIUM 100 MG CAPSULE PO SCH (08:57)
[2021-02-19] MEDS: PANTOPRAZOLE 40 MG TABLET PO SCH (08:58)
[2021-02-19] MEDS: POLYETHYLENE GLYCOL POWDER 17 GM PACK PO SCH (08:58)
[2021-02-19] MEDS: ROSUVASTATIN 20 MG TABLET PO SCH (08:58)
[2021-02-19] MEDS: ASPIRIN EC 81 MG TABLET PO SCH (08:58)
[2021-02-19] MEDS: INSULIN REGULAR 100 UNIT/ML SUBCUT SCH ×4 (08:59→20:49)
[2021-02-19] MEDS: INSULIN GLARGINE 100 UNIT/ML SUBCUT SCH ×2 (08:59→20:49)
[2021-02-19] MEDS: CHLORHEXIDINE 0.12% ORAL RINSE 60 ML BOTTLE SWISH/SPIT SCH ×2 (09:00→20:50)
[2021-02-19] MEDS: FARXIGA 5MG TABLETS PO SCH (09:00)
[2021-02-20] MEDS: ALBUTEROL/IPRATROPIUM 3 ML NEB RESP TX SCH ×4 (01:23→19:28)
[2021-02-20] MEDS: LACTULOSE 20 GM/30 ML UDCUP PO SCH ×6 (02:00→23:04)
[2021-02-20 05:20] LABS: Basophils % 0.3 % (0.0-0.8); Eosinophils # 0.3 10*3/uL (0.0-0.87); Eosinophils % 2.9 % (0.00-10.9); Hematocrit 34.8 VOL% (42.0-52.0); Hemoglobin 11.2 GM/DL (14.0-18.0); Immature Granulocytes % 2.2 %; Immature Granulocytes Absolute 0.22 #; Mean Corpuscular HGB Conc 32.2 GM/DL (32-36); Mean Corpuscular Volume 89.9 FL (87-102); Mean Platelet Volume 11.9 FL (9.6-12.0); Monocytes % 12.9 % (1.7-12.7); NRBC # 0.02 10*3/uL; Neutrophils % 61.7 % (38.7-73.9); Platelet Count 149 T/CUMM (130-400); Red Blood Count 3.87 MC/CUMM (3.8-5.5); Red Cell Distribution Width 15.3 % (9.3-17.3); White Blood Count 9.9 T/CUMM (4-12)
[2021-02-20 05:34] LABS: Calcium 8.9 MG/DL (8.5-10.1); Osmolality,Calculated 284.1 MOS/KG (273-304); Potassium 3.5 MMOL/L (3.5-5.1)
[2021-02-20] MEDS: hydroCHLOROthiazide 12.5 MG CAPSULE PO SCH (08:43)
[2021-02-20] MEDS: ROSUVASTATIN 20 MG TABLET PO SCH (08:43)
[2021-02-20] MEDS: ASPIRIN EC 81 MG TABLET PO SCH (08:44)
[2021-02-20] MEDS: OLMESARTAN 20 MG TABLET PO SCH (08:44)
[2021-02-20] MEDS: POTASSIUM CHLORIDE 20 MEQ TABLET PO PRN (08:46)
[2021-02-20] MEDS: DOCUSATE SODIUM 100 MG CAPSULE PO SCH (08:46)
[2021-02-20] MEDS: PANTOPRAZOLE 40 MG TABLET PO SCH (08:46)
[2021-02-20] MEDS: POLYETHYLENE GLYCOL POWDER 17 GM PACK PO SCH (08:46)
[2021-02-20] MEDS: FERROUS SULFATE 325 MG TABLET PO SCH (08:46)
[2021-02-20] MEDS: oxyCODONE/ACETAMINOPHEN 5-325 MG TABLET PO PRN (08:46)
[2021-02-20] MEDS: INSULIN REGULAR 100 UNIT/ML SUBCUT SCH ×4 (08:47→20:42)
[2021-02-20] MEDS: ASCORBIC ACID 500 MG TABLET PO SCH ×2 (08:47→20:42)
[2021-02-20] MEDS: carvediloL 12.5 MG TABLET PO SCH ×2 (08:47→20:42)
[2021-02-20] MEDS: INSULIN GLARGINE 100 UNIT/ML SUBCUT SCH ×2 (08:49→20:42)
[2021-02-20] MEDS: CHLORHEXIDINE 0.12% ORAL RINSE 60 ML BOTTLE SWISH/SPIT SCH ×2 (08:50→20:42)
[2021-02-20] MEDS: FARXIGA 5MG TABLETS PO SCH (08:50)
[2021-02-20] MEDS: ACETAMINOPHEN 325 MG TABLET PO PRN ×2 (14:33→22:05)
[2021-02-20] MEDS: ZALEPLON 5 MG CAPSULE PO PRN (22:05)
[2021-02-21] MEDS: ALBUTEROL/IPRATROPIUM 3 ML NEB RESP TX SCH ×4 (00:13→19:24)
[2021-02-21] MEDS: LACTULOSE 20 GM/30 ML UDCUP PO SCH ×4 (02:00→21:20)
[2021-02-21] MEDS: ACETAMINOPHEN 325 MG TABLET PO PRN ×3 (03:17→22:52)
[2021-02-21 03:32] LABS: Basophils % 0.3 % (0.0-0.8); Eosinophils # 0.3 10*3/uL (0.0-0.87); Eosinophils % 2.8 % (0.00-10.9); Hemoglobin 10.8 GM/DL (14.0-18.0); Immature Granulocytes % 1.6 %; Immature Granulocytes Absolute 0.18 #; Lymphocytes # 1.9 10*3/uL (1.4-4.0); Lymphocytes % 16.2 % (21.2-54.2); Mean Corpuscular HGB Conc 31.8 GM/DL (32-36); Mean Corpuscular Volume 89.2 FL (87-102); Mean Platelet Volume 11.6 FL (9.6-12.0); Monocytes % 13.2 % (1.7-12.7); NRBC # 0.03 10*3/uL; Neutrophils % 65.9 % (38.7-73.9); Platelet Count 133 T/CUMM (130-400); Red Blood Count 3.81 MC/CUMM (3.8-5.5); Red Cell Distribution Width 15.3 % (9.3-17.3); White Blood Count 11.5 T/CUMM (4-12)
[2021-02-21 03:48] LABS: Calcium 8.8 MG/DL (8.5-10.1); Potassium 3.6 MMOL/L (3.5-5.1)
[2021-02-21 04:28] LABS: Hypochromasia 1+; Microcytosis 1+; Ovalocytes Few
[2021-02-21 04:29] LABS: Platelet Estimate Adequate
[2021-02-21] MEDS: POLYETHYLENE GLYCOL POWDER 17 GM PACK PO SCH (09:01)
[2021-02-21] MEDS: ROSUVASTATIN 20 MG TABLET PO SCH (09:01)
[2021-02-21] MEDS: hydroCHLOROthiazide 12.5 MG CAPSULE PO SCH (09:01)
[2021-02-21] MEDS: carvediloL 12.5 MG TABLET PO SCH ×2 (09:01→21:20)
[2021-02-21] MEDS: ASCORBIC ACID 500 MG TABLET PO SCH ×2 (09:01→21:15)
[2021-02-21] MEDS: FERROUS SULFATE 325 MG TABLET PO SCH (09:02)
[2021-02-21] MEDS: POTASSIUM CHLORIDE 20 MEQ TABLET PO PRN ×2 (09:02→10:20)
[2021-02-21] MEDS: OLMESARTAN 20 MG TABLET PO SCH (09:02)
[2021-02-21] MEDS: PANTOPRAZOLE 40 MG TABLET PO SCH (09:02)
[2021-02-21] MEDS: ASPIRIN EC 81 MG TABLET PO SCH (09:02)
[2021-02-21] MEDS: DOCUSATE SODIUM 100 MG CAPSULE PO SCH (09:02)
[2021-02-21] MEDS: CHLORHEXIDINE 0.12% ORAL RINSE 60 ML BOTTLE SWISH/SPIT SCH ×2 (09:03→21:15)
[2021-02-21] MEDS: FARXIGA 5MG TABLETS PO SCH (09:03)
[2021-02-21] MEDS: INSULIN GLARGINE 100 UNIT/ML SUBCUT SCH ×2 (09:03→22:57)
[2021-02-21] MEDS: INSULIN REGULAR 100 UNIT/ML SUBCUT SCH ×4 (09:04→22:57)
[2021-02-21] MEDS ORDERED: DEXTROSE 50% 25 GM/50 ML VIAL IV PRN (14:21)
[2021-02-21] MEDS: SERTRALINE 25 MG TABLET PO SCH (21:15)
[2021-02-21] MEDS: ZALEPLON 5 MG CAPSULE PO PRN (22:52)
[2021-02-22] MEDS: ALBUTEROL/IPRATROPIUM 3 ML NEB RESP TX SCH ×3 (00:25→14:06)
[2021-02-22 07:07] LABS: Basophils % 0.2 % (0.0-0.8); Eosinophils % 0.2 % (0.00-10.9); Hematocrit 30.9 VOL% (42.0-52.0); Immature Granulocytes % 0.9 %; Immature Granulocytes Absolute 0.15 #; Lymphocytes % 6.2 % (21.2-54.2); Mean Corpuscular HGB Conc 32.4 GM/DL (32-36); Mean Corpuscular Volume 90.1 FL (87-102); Mean Platelet Volume 12.2 FL (9.6-12.0); Monocytes % 8.5 % (1.7-12.7); Platelet Count 125 T/CUMM (130-400); Red Blood Count 3.43 MC/CUMM (3.8-5.5); Red Cell Distribution Width 15.5 % (9.3-17.3); White Blood Count 16.4 T/CUMM (4-12)
[2021-02-22 07:36] LABS: Calcium 8.1 MG/DL (8.5-10.1); Potassium 3.4 MMOL/L (3.5-5.1)
[2021-02-22] MEDS: INSULIN GLARGINE 100 UNIT/ML SUBCUT SCH ×2 (09:19→22:49)
[2021-02-22] MEDS: FERROUS SULFATE 325 MG TABLET PO SCH (09:20)
[2021-02-22] MEDS: POLYETHYLENE GLYCOL POWDER 17 GM PACK PO SCH (09:20)
[2021-02-22] MEDS: DOCUSATE SODIUM 100 MG CAPSULE PO SCH (09:20)
[2021-02-22] MEDS: hydroCHLOROthiazide 12.5 MG CAPSULE PO SCH (09:20)
[2021-02-22] MEDS: LACTULOSE 20 GM/30 ML UDCUP PO SCH (09:20)
[2021-02-22] MEDS: ASPIRIN EC 81 MG TABLET PO SCH (09:20)
[2021-02-22] MEDS: ASCORBIC ACID 500 MG TABLET PO SCH ×2 (09:20→22:26)
[2021-02-22] MEDS: POTASSIUM CHLORIDE 20 MEQ TABLET PO PRN ×3 (09:21→13:15)
[2021-02-22] MEDS: LEVOFLOXACIN 500 MG TABLET PO SCH (09:21)
[2021-02-22] MEDS: carvediloL 12.5 MG TABLET PO SCH ×2 (09:21→22:26)
[2021-02-22] MEDS: OLMESARTAN 20 MG TABLET PO SCH (09:21)
[2021-02-22] MEDS: PANTOPRAZOLE 40 MG TABLET PO SCH (09:21)
[2021-02-22] MEDS: CHLORHEXIDINE 0.12% ORAL RINSE 60 ML BOTTLE SWISH/SPIT SCH ×2 (09:26→22:26)
[2021-02-22] MEDS: FARXIGA 5MG TABLETS PO SCH (09:26)
[2021-02-22] MEDS: INSULIN REGULAR 100 UNIT/ML SUBCUT SCH ×4 (09:27→22:26)
[2021-02-22] MEDS: ACETAMINOPHEN 325 MG TABLET PO PRN ×2 (09:30→22:09)
[2021-02-22] MEDS: SERTRALINE 25 MG TABLET PO SCH (22:26)
[2021-02-23] MEDS: ZALEPLON 5 MG CAPSULE PO PRN (00:50)
[2021-02-23] MEDS: ALBUTEROL/IPRATROPIUM 3 ML NEB RESP TX SCH ×4 (03:58→19:10)
[2021-02-23 06:26] LABS: Basophils % 0.2 % (0.0-0.8); Eosinophils # 0.1 10*3/uL (0.0-0.87); Eosinophils % 0.8 % (0.00-10.9); Hematocrit 31.6 VOL% (42.0-52.0); Hemoglobin 10.1 GM/DL (14.0-18.0); Immature Granulocytes Absolute 0.16 #; Lymphocytes # 1.1 10*3/uL (1.4-4.0); Lymphocytes % 6.8 % (21.2-54.2); Mean Platelet Volume 11.7 FL (9.6-12.0); Monocytes % 7.5 % (1.7-12.7); Neutrophils % 83.7 % (38.7-73.9); Platelet Count 133 T/CUMM (130-400); Red Blood Count 3.51 MC/CUMM (3.8-5.5); Red Cell Distribution Width 15.6 % (9.3-17.3); White Blood Count 15.6 T/CUMM (4-12)
[2021-02-23 06:51] LABS: Calcium 8.5 MG/DL (8.5-10.1); Osmolality,Calculated 291.7 MOS/KG (273-304); Potassium 3.8 MMOL/L (3.5-5.1)
[2021-02-23] MEDS: ASCORBIC ACID 500 MG TABLET PO SCH ×2 (08:33→21:10)
[2021-02-23] MEDS: ASPIRIN EC 81 MG TABLET PO SCH (08:33)
[2021-02-23] MEDS: amLODIPine 5 MG TABLET PO SCH (08:33)
[2021-02-23] MEDS: OLMESARTAN 20 MG TABLET PO SCH (08:33)
[2021-02-23] MEDS: DOCUSATE SODIUM 100 MG CAPSULE PO SCH (08:33)
[2021-02-23] MEDS: LEVOFLOXACIN 500 MG TABLET PO SCH (08:33)
[2021-02-23] MEDS: hydroCHLOROthiazide 12.5 MG CAPSULE PO SCH (08:33)
[2021-02-23] MEDS: carvediloL 12.5 MG TABLET PO SCH ×2 (08:34→21:10)
[2021-02-23] MEDS: POLYETHYLENE GLYCOL POWDER 17 GM PACK PO SCH (08:34)
[2021-02-23] MEDS: POTASSIUM CHLORIDE 20 MEQ TABLET PO PRN (08:34)
[2021-02-23] MEDS: FERROUS SULFATE 325 MG TABLET PO SCH (08:34)
[2021-02-23] MEDS: FARXIGA 5MG TABLETS PO SCH (08:35)
[2021-02-23] MEDS: INSULIN REGULAR 100 UNIT/ML SUBCUT SCH ×4 (08:36→21:11)
[2021-02-23] MEDS: INSULIN GLARGINE 100 UNIT/ML SUBCUT SCH ×2 (08:36→21:11)
[2021-02-23] MEDS: PANTOPRAZOLE 40 MG TABLET PO SCH (08:37)
[2021-02-23] MEDS: CHLORHEXIDINE 0.12% ORAL RINSE 60 ML BOTTLE SWISH/SPIT SCH ×2 (08:37→21:11)
[2021-02-23] MEDS: LACTULOSE 20 GM/30 ML UDCUP PO SCH (08:38)
[2021-02-23] MEDS ORDERED: AMIODARONE INJ 150 MG in DEXTROSE 5% 100 ML IV ONE (08:58)
[2021-02-23] MEDS ORDERED: AMIODARONE INJ 450 MG in DEXTROSE 5% 241 ML IV SCH (09:00)
[2021-02-23] MEDS: APIXABAN 5 MG TABLET PO SCH ×2 (09:46→21:10)
[2021-02-23 09:58] LABS: INR 1.2; PT Patient Result 12.8 SECS (9.8-11.9); Partial Thromboplastin Time 28.5 SECS (23.9-33.8)
[2021-02-23] MEDS: SERTRALINE 25 MG TABLET PO SCH (21:10)
[2021-02-24] MEDS: ALBUTEROL/IPRATROPIUM 3 ML NEB RESP TX SCH ×2 (01:15→07:28)
[2021-02-24 06:02] LABS: Basophils % 0.3 % (0.0-0.8); Eosinophils # 0.2 10*3/uL (0.0-0.87); Eosinophils % 1.8 % (0.00-10.9); Hematocrit 31.3 VOL% (42.0-52.0); Hemoglobin 9.9 GM/DL (14.0-18.0); Immature Granulocytes % 1.1 %; Immature Granulocytes Absolute 0.15 #; Lymphocytes # 1.2 10*3/uL (1.4-4.0); Mean Corpuscular HGB Conc 31.6 GM/DL (32-36); Mean Corpuscular Volume 89.4 FL (87-102); Mean Platelet Volume 12.2 FL (9.6-12.0); Monocytes % 7.9 % (1.7-12.7); Neutrophils % 79.9 % (38.7-73.9); Platelet Count 163 T/CUMM (130-400); Red Cell Distribution Width 15.5 % (9.3-17.3); White Blood Count 13.5 T/CUMM (4-12)
[2021-02-24 06:14] LABS: Calcium 8.9 MG/DL (8.5-10.1); Osmolality,Calculated 288.1 MOS/KG (273-304); Potassium 3.6 MMOL/L (3.5-5.1)
[2021-02-24] MEDS ORDERED: AMIODARONE 200 MG TABLET PO SCH (09:00)
[2021-02-24] MEDS: amLODIPine 5 MG TABLET PO SCH (09:32)
[2021-02-24] MEDS: ASCORBIC ACID 500 MG TABLET PO SCH (09:32)
[2021-02-24] MEDS: ASPIRIN EC 81 MG TABLET PO SCH (09:32)
[2021-02-24] MEDS: hydroCHLOROthiazide 12.5 MG CAPSULE PO SCH (09:32)
[2021-02-24] MEDS: PANTOPRAZOLE 40 MG TABLET PO SCH (09:32)
[2021-02-24] MEDS: LEVOFLOXACIN 500 MG TABLET PO SCH (09:32)
[2021-02-24] MEDS: POTASSIUM CHLORIDE 20 MEQ TABLET PO PRN (09:32)
[2021-02-24] MEDS: LACTULOSE 20 GM/30 ML UDCUP PO SCH (09:33)
[2021-02-24] MEDS: carvediloL 12.5 MG TABLET PO SCH (09:33)
[2021-02-24] MEDS: DOCUSATE SODIUM 100 MG CAPSULE PO SCH (09:33)
[2021-02-24] MEDS: OLMESARTAN 20 MG TABLET PO SCH (09:33)
[2021-02-24] MEDS: INSULIN GLARGINE 100 UNIT/ML SUBCUT SCH (09:34)
[2021-02-24] MEDS: INSULIN REGULAR 100 UNIT/ML SUBCUT SCH ×2 (09:34→11:55)
[2021-02-24] MEDS: FARXIGA 5MG TABLETS PO SCH (09:35)
[2021-02-24] MEDS: CHLORHEXIDINE 0.12% ORAL RINSE 60 ML BOTTLE SWISH/SPIT SCH (09:35)
[2021-02-24] MEDS: POLYETHYLENE GLYCOL POWDER 17 GM PACK PO SCH (09:36)
[2021-02-24 11:42] VITALS: BP 125/67
[2021-02-24] MEDS ORDERED: MENTHOL/ZINC OXIDE OINT 71 GM JAR TOP SCH (13:30)
== END 2021-02-24 13:45 | DRG 236 ==
LOC: N.4E 09:23 → N.CVR 02-11 11:34 → N.ICU 02-12 15:55 → N.TELES 02-14 09:35

== ENCOUNTER 2022-05-12 19:16 | Inpatient (IN) ==
[2022-05-12 19:42] LABS: Basophils % 0.1 % (0.0-0.8); Eosinophils % 0.1 % (0.00-10.9); Hematocrit 49.9 VOL% (42.0-52.0); Hemoglobin 15.8 GM/DL (14.0-18.0); Immature Granulocytes % 0.5 %; Immature Granulocytes Absolute 0.05 #; Lymphocytes # 1.6 10*3/uL (1.4-4.0); Lymphocytes % 17.1 % (21.2-54.2); Mean Corpuscular HGB Conc 31.7 GM/DL (32-36); Mean Corpuscular Volume 83.4 FL (87-102); Mean Platelet Volume 10.8 FL (9.6-12.0); Monocytes # 0.8 10*3/uL (0.11-0.8); Monocytes % 8.2 % (1.7-12.7); Platelet Count 168 T/CUMM (130-400); Red Blood Count 5.98 MC/CUMM (3.8-5.5); Red Cell Distribution Width 18.5 % (9.3-17.3); White Blood Count 9.1 T/CUMM (4-12)
[2022-05-12 19:56] LABS: PT Patient Result 11.5 SECS (10.5-12.0); Partial Thromboplastin Time 24.9 SECS (23.7-32.9)
[2022-05-12 20:15] LABS: Albumin 4.3 G/DL (3.4-5.0); Bilirubin,Total 0.8 MG/DL (0.20-1.00); Calcium 9.2 MG/DL (8.5-10.1); Osmolality,Calculated 289.4 MOS/KG (273-304); Potassium 4.9 MMOL/L (3.5-5.1); Total Protein 7.4 G/DL (6.4-8.2)
[2022-05-12] MEDS ORDERED: NITROGLYCERIN SL 0.4 MG TABLET SL PRN (20:22)
[2022-05-12] MEDS ORDERED: ASPIRIN EC 325 MG TABLET PO STA (20:22)
[2022-05-12] MEDS ORDERED: ENOXAPARIN 30 MG/0.3 ML SYRINGE SUBCUT STA (20:23)
[2022-05-12] MEDS ORDERED: ONDANSETRON 4 MG/2 ML VIAL IV STA (20:23)
[2022-05-12] MEDS ORDERED: MORPHINE 2 MG/1 ML SYRINGE IV STA (20:23)
[2022-05-12] MEDS ORDERED: ENOXAPARIN 100 MG/ML SYRINGE SUBCUT ONE (20:29)
[2022-05-12] MEDS ORDERED: hydrALAZINE 20 MG/1 ML VIAL IV PRN (20:38)
[2022-05-12] MEDS ORDERED: GLUCAGON 1 MG VIAL IM PRN (20:38)
[2022-05-12] MEDS ORDERED: ONDANSETRON 4 MG/2 ML VIAL IV PRN (20:38)
[2022-05-12] MEDS ORDERED: ACETAMINOPHEN 325 MG TABLET PO PRN (20:38)
[2022-05-12] MEDS ORDERED: SIMETHICONE CHEW 125 MG TABLET PO PRN (20:38)
[2022-05-12] MEDS ORDERED: MORPHINE 2 MG/1 ML SYRINGE IV PRN (20:38)
[2022-05-12] MEDS ORDERED: LOSARTAN 50 MG TABLET PO SCH (20:43)
[2022-05-12] MEDS ORDERED: DEXTROSE 10% 250 ML BAG IV PRN (20:48)
[2022-05-12] MEDS: INSULIN REGULAR 100 UNIT/ML SUBCUT SCH (21:59)
[2022-05-12] MEDS: DOCUSATE SODIUM 100 MG CAPSULE PO SCH (22:21)
[2022-05-12] MEDS: amLODIPine 10 MG TABLET PO SCH (23:15)
[2022-05-13 01:30] LABS: Basophils % 0.1 % (0.0-0.8); Eosinophils % 0.4 % (0.00-10.9); Hematocrit 46.4 VOL% (42.0-52.0); Hemoglobin 14.6 GM/DL (14.0-18.0); Immature Granulocytes % 0.4 %; Immature Granulocytes Absolute 0.03 #; Lymphocytes # 2.1 10*3/uL (1.4-4.0); Mean Corpuscular HGB Conc 31.5 GM/DL (32-36); Mean Corpuscular Volume 83.9 FL (87-102); Monocytes # 0.8 10*3/uL (0.11-0.8); Monocytes % 10.8 % (1.7-12.7); Neutrophils % 61.3 % (38.7-73.9); Platelet Count 142 T/CUMM (130-400); Red Blood Count 5.53 MC/CUMM (3.8-5.5); White Blood Count 7.8 T/CUMM (4-12)
[2022-05-13 01:53] LABS: INR 1.1; PT Patient Result 12.2 SECS (10.5-12.0); Partial Thromboplastin Time 33.4 SECS (23.7-32.9)
[2022-05-13 02:00] LABS: Calcium 8.9 MG/DL (8.5-10.1); Osmolality,Calculated 291.1 MOS/KG (273-304); Potassium 4.3 MMOL/L (3.5-5.1); Risk Ratio 2.32; Thyroid Stimulating Hormone 0.371 uIU/ml (0.358-3.74)
[2022-05-13] MEDS ORDERED: SODIUM CHLORIDE 0.9% 1,000 ML IV SCH (03:30)
[2022-05-13] MEDS: INSULIN REGULAR 100 UNIT/ML SUBCUT SCH ×4 (08:07→22:16)
[2022-05-13] MEDS: ASPIRIN EC 325 MG TABLET PO SCH (08:47)
[2022-05-13] MEDS: amLODIPine 10 MG TABLET PO SCH (08:47)
[2022-05-13] MEDS: OLMESARTAN 20 MG TABLET PO SCH (08:47)
[2022-05-13] MEDS: DOCUSATE SODIUM 100 MG CAPSULE PO SCH ×2 (08:48→20:12)
[2022-05-13] MEDS: carvediloL 12.5 MG TABLET PO SCH ×2 (08:48→20:13)
[2022-05-13] MEDS: PANTOPRAZOLE 40 MG TABLET PO SCH (08:49)
[2022-05-13] MEDS: ROSUVASTATIN 20 MG TABLET PO SCH (08:49)
[2022-05-13] MEDS: EZETIMIBE 10 MG TABLET PO SCH (08:49)
[2022-05-13] MEDS: DAPAGLIFLOZIN 10 MG TABLET PO SCH (08:49)
[2022-05-13] MEDS ORDERED: ENOXAPARIN 100 MG/ML SYRINGE SUBCUT SCH (09:00)
[2022-05-13] MEDS ORDERED: diphenhydrAMINE CAP 25 MG CAPSULE PO ONE (10:46)
[2022-05-13] MEDS ORDERED: methylPREDNISolone SOD SUC 125 MG/2 ML VIAL IV ONE (10:47)
[2022-05-13] MEDS ORDERED: FAMOTIDINE 20 MG/2 ML VIAL IV ONE (10:47)
[2022-05-13] MEDS ORDERED: HEPARIN/NACL 0.9% 2 UNITS/ML 3,000 UNIT/1,500 ML BAG IV ONE (11:00)
[2022-05-13] MEDS ORDERED: fentaNYL 100 MCG/2 ML VIAL ONE (11:16)
[2022-05-13] MEDS ORDERED: MIDAZOLAM 2 MG/2 ML VIAL ONE (11:16)
[2022-05-13] MEDS ORDERED: ENOXAPARIN 40 MG/0.4 ML SYRINGE SUBCUT SCH (11:30)
[2022-05-13] MEDS ORDERED: GLUCAGON 1 MG VIAL IM PRN (12:57)
[2022-05-13] MEDS: ISOSORBIDE MONONITRATE 30 MG TABLET PO SCH (13:01)
[2022-05-13] MEDS ORDERED: DEXTROSE 10% 250 ML BAG IV PRN (13:07)
[2022-05-13] MEDS ORDERED: INSULIN GLARGINE 100 UNIT/ML SUBCUT SCH (21:00)
[2022-05-14 05:43] LABS: Calcium 8.3 MG/DL (8.5-10.1); Osmolality,Calculated 295.2 MOS/KG (273-304); Potassium 4.5 MMOL/L (3.5-5.1)
[2022-05-14 05:48] LABS: Immature Granulocytes % 0.4 %; Immature Granulocytes Absolute 0.03 #; Lymphocytes # 0.8 10*3/uL (1.4-4.0); Lymphocytes % 11.4 % (21.2-54.2); Mean Corpuscular HGB Conc 31.1 GM/DL (32-36); Mean Corpuscular Volume 85.1 FL (87-102); Mean Platelet Volume 11.7 FL (9.6-12.0); Monocytes # 0.9 10*3/uL (0.11-0.8); Monocytes % 11.6 % (1.7-12.7); Neutrophils % 76.6 % (38.7-73.9); Platelet Count 148 T/CUMM (130-400); Red Blood Count 5.29 MC/CUMM (3.8-5.5); Red Cell Distribution Width 17.9 % (9.3-17.3); White Blood Count 7.4 T/CUMM (4-12)
[2022-05-14] MEDS ORDERED: ENOXAPARIN 80 MG/0.8 ML SYRINGE SUBCUT ONE (07:58)
[2022-05-14] MEDS: ROSUVASTATIN 20 MG TABLET PO SCH (08:00)
[2022-05-14] MEDS: DOCUSATE SODIUM 100 MG CAPSULE PO SCH (08:00)
[2022-05-14] MEDS: DAPAGLIFLOZIN 10 MG TABLET PO SCH (08:00)
[2022-05-14] MEDS: INSULIN REGULAR 100 UNIT/ML SUBCUT SCH ×2 (08:00→11:29)
[2022-05-14] MEDS: ISOSORBIDE MONONITRATE 30 MG TABLET PO SCH (08:00)
[2022-05-14] MEDS: ASPIRIN EC 325 MG TABLET PO SCH (08:01)
[2022-05-14] MEDS: EZETIMIBE 10 MG TABLET PO SCH (08:01)
[2022-05-14] MEDS: OLMESARTAN 20 MG TABLET PO SCH (08:01)
[2022-05-14] MEDS: amLODIPine 10 MG TABLET PO SCH (08:01)
[2022-05-14] MEDS: PANTOPRAZOLE 40 MG TABLET PO SCH (08:01)
[2022-05-14] MEDS: carvediloL 12.5 MG TABLET PO SCH (08:01)
[2022-05-14] MEDS ORDERED: ENOXAPARIN 80 MG/0.8 ML SYRINGE SUBCUT SCH (09:00)
[2022-05-14] MEDS ORDERED: INSULIN LISPRO 100 UNIT/ML SUBCUT SCH (11:30)
[2022-05-14 12:13] VITALS: BP 115/61
[2022-05-15] MEDS ORDERED: ASPIRIN EC 81 MG TABLET PO SCH (09:00)
== END 2022-05-14 12:50 | disposition home or self-care (01) | DRG 281 ==
LOC: N.ED 19:16 → N.EDINP 20:38 → N.TELES 21:33
PROVIDERS: ADMIT Emergency Medicine; ATTEND Emergency Medicine